=== PATIENT | male | born 1980 | race American Indian/Alaskan Native ===

== ENCOUNTER 2021-10-07 20:36 | Emergency (ER) | payer SELFPAY ==
[2021-10-07] MEDS ORDERED: Sodium Chloride 0.9% 10 ML Syringe FLUSH PRN (20:52)
[2021-10-07] MEDS ORDERED: Ketorolac 30 MG/ML SDV IVPUSH ONE ×2 (20:52→20:54)
[2021-10-07] MEDS ORDERED: Sodium Chloride 0.9% 2.5 ML Syringe FLUSH PRN (20:52)
[2021-10-07] MEDS ORDERED: Sodium Chloride 0.9% 1,000 ML IV ONE (20:52)
[2021-10-07 21:42] LABS: CARBON DIOXIDE,CO2 25.6 mmol/L (21.0-32.0)
[2021-10-07 22:05] LABS: CORONAVIRUS COVID-19 NAA POSITIVE (NEGATIVE); INFLUENZA A NAA NEGATIVE (NEGATIVE); INFLUENZA B NAA NEGATIVE (NEGATIVE)
[2021-10-07] MEDS ORDERED: Acetaminophen 500 MG Tab PO ONE (23:03)
[2021-10-08] MEDS ORDERED: Iopamidol 755 MG/ML 500 ML Multipack Bottle IVPUSH ONE (04:30)
== END 2021-10-08 00:01 | disposition home or self-care (01) ==
LOC: MW.ED 20:36
DX: U07.1 COVID-19 (principal); Z91.013 Allergy to seafood
CPT/HCPCS: 0240U; 36415; 71045; 71275; 80053; 85025; 93005; 96361; 96374; 99285; A9270; J1885; J3490; J7030; Q9967; 93010; 99284